=== PATIENT | male | born 2000 | race Caucasian/White ===

== ENCOUNTER 2023-08-05 15:29 | Emergency (ER) | payer SELFPAY | END 2023-08-05 16:22 | disposition home or self-care (01) | LOC: MW.ED 15:29 | DX: H66.92 Otitis media, unspecified, left ear (principal); J32.9 Chronic sinusitis, unspecified; F17.210 Nicotine dependence, cigarettes, uncomplicated; Z79.899 Other long term (current) drug therapy | CPT/HCPCS: 99283 ==

== ENCOUNTER 2024-02-21 20:02 | Emergency (ER) | payer SELFPAY ==
[2024-02-21] MEDS: Azithromycin 250 MG Tab PO STA (23:43)
[2024-02-21] MEDS: Cefuroxime 250 MG Tab PO ONE (23:56)
== END 2024-02-21 23:51 | disposition home or self-care (01) ==
LOC: MW.ED 20:02
DX: J18.9 Pneumonia, unspecified organism (principal); Z79.899 Other long term (current) drug therapy
CPT/HCPCS: 71045; 87428; 99283; A9270